=== PATIENT | male | born 1950 | race Caucasian/White ===

== ENCOUNTER 2019-10-09 09:04 | Day surgery (SDC) | payer OTHER, MEDICARE ==
[~2019-10-09] VITALS: Ht 177.8 cm; Wt 81.6 kg
[~2019-10-09 09:04] MED LIST: AMLODIPINE BES2.5 MG; ASPI325 PO; Aspir 8181 MG; CRANBERRY250 MG; FISH OIL 500 M1 EAC1; GABA100; LEVSOD112; LISI20 PO; METF500 PO; METO25ER; NOVOLOG100 UNIT/1; Oxybutynin Chlo10 MG; ROSU10TA; SITA50T2 PO; TUMS500 MG; Zestril30 MG; [UNRECOGNIZED DRUG - OTHER]
== END 2019-10-09 12:00 | disposition home or self-care (01) ==
LOC: ORSCSDS 09:04
PROVIDERS: Internal Medicine Gastroenterology
PROC: 0DBK8ZX Excision of Ascending Colon, Via Natural or Artificial Opening Endoscopic, Diagnostic (ICD-10-PCS; principal; 2019-10-09 10:30)
PROC: 0DBN8ZX Excision of Sigmoid Colon, Via Natural or Artificial Opening Endoscopic, Diagnostic (ICD-10-PCS; principal; 2019-10-09 10:30)
DX: Z12.11 Encounter for screening for malignant neoplasm of colon (principal); Z86.010 Personal history of colon polyps; K57.30 Diverticulosis of large intestine without perforation or abscess without bleeding; D12.2 Benign neoplasm of ascending colon; D12.5 Benign neoplasm of sigmoid colon; E11.9 Type 2 diabetes mellitus without complications; I10 Essential (primary) hypertension; E03.9 Hypothyroidism, unspecified; Z87.891 Personal history of nicotine dependence; Z79.899 Other long term (current) drug therapy
CPT/HCPCS: 82947; 88305; J2704; J7120